=== PATIENT | male | born 1960 | race Caucasian/White ===

== ENCOUNTER 2016-12-31 06:47 | Day surgery (SDC) | payer MEDICARE, BC, MEDICAID ==
[~2016-12-31] VITALS: Ht 188 cm; Wt 134.1 kg
--- NOTE | ~2016-12-31 | OR ---
PATIENT'S NAME: DARREL PACK [facility] AGE: 56 Y [address] ROOM: [address] [address] LOCATION: [facility] ADMIT DATE: 12/31/2016 OR/Procedure Report DISCHARGE DATE: FAMILY PHYSICIAN: PAT SMITH MD ATTENDING PHYSICIAN: Wilbert Wang SURGEON: Wilbert Wang MD HOT SHOT: DATE OF PROCEDURE: 12/31/2016 PREOPERATIVE DIAGNOSIS: Large recurrent L5-S1 disk herniation on the left side. 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 OPERATION PROPOSED: Left L5-S1 diskectomy. OPERATION PERFORMED: Left L5-S1 hemilaminectomy and neurolysis of the left S1 nerve root. DESCRIPTION OF PROCEDURE: Under general anesthesia, the patient was positioned prone and the back was prepped and draped in the usual fashion. A midline incision was then carried out extending from the spinous process of L4 all the way down to the sacrum. A scarred tissue on the left-side as well as the fascia was incised to the left of the midline. The scar tissue and paraspinal muscles were then reflected from the lamina of L4, L5, and S1 on the left-side. Then, we used a Super Slide for retraction primarily because all the other retractors will not be able to draw long enough. The microscope was brought in. With the aid of the microscope, we did take off the remnants of the L5 lamina with the aim of seeing if we could get into a normal area, where we could identify the dura and then work our way down, we really did not. We consequently went ahead and removed more of the superior portion of the S1 lamina and we were able to eventually get to normal dura and got into normal dura. We then started dissecting the scar tissue away from the dura. We were eventually able to completely carry these out; and on doing that, we also did a neurolysis, removed all the scar tissue around the S1 nerve root, and follow the S1 nerve root all the way out into the neural foramen and made sure it was quite free. The C-arm was brought in to assist with identifying a location under fluoroscopy multiple times. We did confirm that we were at the L5-S1 segment and we moved towards to the midportion of the L5 vertebral body in order to make sure that what we thought was a fragment that extended superiorly was not missed out and there was really no fragment seen. As a consequence of that, there was really no need to do a diskectomy. We did explore the L5-S1 disk, did run over the disk space with a [place] #4, and there was really no significant herniating disk anterior that we could palpate. After this had been done, the wound was thoroughly irrigated with PATIENT'S NAME: DARREL PACK [facility] AGE: 56 Y [address] ROOM: [place] [id number] LOCATION: [facility] ADMIT DATE: 12/31/2016 OR/Procedure Report DISCHARGE DATE: FAMILY PHYSICIAN: PAT SMITH MD ATTENDING PHYSICIAN: Wilbert Wang bacitracin irrigation. The self-retaining retractors were then removed and the wound was then closed in layers in the usual fashion, first the fascia, then the subcutaneous fatty layers, which was closed with 0 Vicryl in 2 layers, and then the skin was then closed with belem. The patient tolerated the procedure well and was taken to the recovery room. MD JEREMÍAS ZURITA/marcello /[id number] d: 01/01/17 0357 t: 01/16/17 1453, OPERATIVE SUMMARY
[~2016-12-31 06:47] MED LIST: AMBIEN5 MG PO; CELEXA20 MG PO; CITALOPRAM HBR40 MG PO; COREG6.25 MG PO; GLUCOPHAGE XR500 M1 PO; LACTULOSE10 GM/15 M PO; LYRICA 150MG C150 MG PO; MIRAPEX0.125 MG PO; OMEPRAZOLE40 MG PO; ROXICODONE 5MG (5 MG PO; VICTOZA 2-0.6 MG/0.1 SUB-Q
--- NOTE | 2016-12-31 18:50 | NUR ---
Significant Event: patient up to floor from PACU at 1500. back dressing c/d/i. c/o tingling to bilateral feet, otherwise csm assessments wnl. morphine mixer whipped topping for pain control, rates pain 5-2 on pain scale. ambulated to bathroom and up to chair with 1 assist, with use of gait belt, tolerated well. voiding without difficulty. sister at bedside, supportive. Follow up:
--- NOTE | 2017-01-01 04:08 | NUR ---
Significant Event: Patient alert and oriented. VSS on room air. Up with 1-standby assist. Morphine DATA KEYER continues. Voids without difficulity. Dressing to back dry and intact. Numbness/tingling to bilateral feet which patient states is normal for him. Pleasant and cooperativ with cares. Follow up: continue to [facility]
--- NOTE | 2017-01-01 09:25 | NUR ---
Introduced self/role to patient. He lives with his mom in [place]. His sister are around and will help as needed. He denied any barriers to going home or at home. He plans to go home today.
[2017-01-01] MEDS ORDERED: PERCOCET 5-3251 EACH PO (10:38)
--- NOTE | 2017-01-01 12:33 | NUR ---
PT GIVEN DISCHARGE INSTRUCTIONS AND VOICES UNDERSTADNING. SISTER AT PT'S SIDE. MEDICATIONS REVIEWED AND DRESSING CHANGED PRIOR TO DISCHARGE. ESCORTED TO THE FRONT DOOR BY THIS NURSE. SISTER AT PT'S SIDE.
== END 2017-01-01 12:00 | disposition disaster alternative care site (69) ==
LOC: G3N 06:47 → GSDC 06:47 → GPOC 07:00 → G3N 14:50 → GSDC 01-01 12:00
DX: M51.26 Other intervertebral disc displacement, lumbar region (principal); E11.42 Type 2 diabetes mellitus with diabetic polyneuropathy
CPT/HCPCS: J0690; J1100; J2001; J2250; J2270; J2405; J7030; J7040; J7120